=== PATIENT | female | born 2000 | race Two or more races ===

== ENCOUNTER 2023-04-11 22:31 | Emergency (ER) | payer SELFPAY ==
[~2023-04-11] VITALS: Ht 170.2 cm; Wt 61.3 kg
[2023-04-12 00:07] LABS: Urine Bacteria NONE SEEN /hpf (None Seen); Urine WBC 2 /hpf (0 - 5)
[2023-04-12 00:12] LABS: Urine Clarity CLEAR (Clear); Urine Color Yellow (Yellow)
[2023-04-12 00:13] LABS: Urine Protein, UAD TRACE (Negative); Urine Urobilinogen Normal (Negative)
[2023-04-12 00:14] LABS: Urine Blood 3+ /uL (Negative)
[2023-04-12 00:28] VITALS: BP 124/87; TEMP 98.3
[2023-04-12 00:30] VITALS: PULSE 80; RESP 17; O2SAT 98
== END 2023-04-12 05:57 | disposition left against medical advice (07) ==
LOC: ER 22:31
DX: R51.9 Headache, unspecified (principal); R11.2 Nausea with vomiting, unspecified; H53.142 Visual discomfort, left eye
CPT/HCPCS: 70450; 81001